=== PATIENT | male | born 1980 | race Caucasian/White ===

== ENCOUNTER 2017-03-22 11:51 | Emergency (ER) | payer OTHER ==
[2017-03-22 12:05] VITALS: BP 130/81
[2017-03-22] MEDS ORDERED: OXYCODONE-ACETAMINOPHEN 5-325 MG TABLET PO ONE (12:37)
--- NOTE | 2017-03-22 12:37 | ER Document Report ---
ED Medical Screen (RME) - General Chief Complaint: Headache Stated Complaint: HEADACHE,KNOT ON HEAD,ABDOMINAL PAIN Mode of Arrival: Ambulatory Information source: Patient Notes: 36-year-old male presents with complaints of headache and left head swelling this morning. Patient denies any fevers or chills I have greeted and performed a rapid initial assessment of this patient. A comprehensive ED assessment and evaluation of the patient, analysis of test results and completion of the medical decision making process will be conducted by additional ED providers. PHYSICAL EXAMINATION: GENERAL: Well-appearing, well-nourished and in no acute distress. HEAD: Left frontal/parietal swelling noted tender to palpation EYES: Pupils equal round extraocular movements intact, conjunctiva are normal. ENT: Nares patent NECK: Normal range of motion LUNGS: No respiratory distress Musculoskeletal: Normal range of motion NEUROLOGICAL: Normal speech, normal gait. PSYCH: Normal mood, normal affect. SKIN: Warm, Dry, normal turgor, no rashes or lesions noted. TRAVEL OUTSIDE OF THE [place] IN LAST 30 DAYS: No - Related Data Allergies/Adverse Reactions: No Known Allergies Allergy (Verified 03/22/17 12:03) Past Medical History Renal/ Medical History: Denies: Hx Peritoneal Dialysis Physical Exam - Vital signs Vitals: Temp Pulse Resp BP Pulse Ox 98.6 F 89 16 130/81 H 95 03/22/17 12:03 03/22/17 12:03 03/22/17 12:03 03/22/17 12:03 03/22/17 12:03 Course - Vital Signs Vital signs: Temp Pulse Resp BP Pulse Ox 98.6 F 89 16 130/81 H 95 03/22/17 12:03 03/22/17 12:03 03/22/17 12:03 03/22/17 12:03 03/22/17 12:03
[2017-03-22] MEDS ORDERED: METOCLOPRAMIDE HCL INJ/PF 10 MG/2 ML SDV IM ONE (15:52)
[2017-03-22] MEDS ORDERED: KETOROLAC TROMETHAMINE 60 MG/2 ML SDV IM ONE (15:52)
[2017-03-22] MEDS ORDERED: DIPHENHYDRAMINE HCL 50 MG/ML VIAL IM ONE (15:52)
--- NOTE | 2017-03-22 16:04 | ER Document Report ---
ED Headache - General Chief Complaint: Headache Stated Complaint: HEADACHE,KNOT ON HEAD,ABDOMINAL PAIN Mode of Arrival: Ambulatory TRAVEL OUTSIDE OF THE [place] IN LAST 30 DAYS: No - HPI Patient complains to provider of: Headache Notes: Patient arrives with complaints of pain at this morning with the left side of his head being somewhat swollen and having pain. States that this area is tender to the touch and is causing him to have a headache in general. He denies any head injury. He denies any fever. Denies any redness. He has nausea and states that he vomited a few times. He denies any abdominal pain. No diarrhea. No rash. He is on no blood thinners. He denies any IV drug use. He denies any blurred or loss vision. He does complain of some mild photophobia. This was not a sudden onset thunderclap type headache. He denies any unilateral numbness tingling or weakness. The pain is worse with touching the left side of his head, nothing seems to make it better. - Related Data Allergies/Adverse Reactions: No Known Allergies Allergy (Verified 03/22/17 12:03) Past Medical History - General Information source: Patient - Social History Smoking Status: Unknown if Ever Smoked Family History: Reviewed & Not Pertinent Patient has suicidal ideation: No Patient has homicidal ideation: No Renal/ Medical History: Denies: Hx Peritoneal Dialysis Review of Systems - Review of Systems -: Yes All other systems reviewed and negative Physical Exam - Vital signs Vitals: Temp Pulse Resp BP Pulse Ox 98.6 F 89 16 130/81 H 95 03/22/17 12:03 03/22/17 12:03 03/22/17 12:03 03/22/17 12:03 03/22/17 12:03 - Notes Notes: GENERAL: alert, cooperative, nontoxic, no distress. HEAD: normocephalic, atraumatic. Patient is noted to have a slight fluctuant area to the left lutheran/frontal scalp. There is no redness. There is no pointing area. No rash noted. Area is tender to palpation. EYES: conjunctiva pink without discharge, no external redness or swelling. Pupils are equal, round, reactive to light. EARS: no external swelling, no external redness NOSE: atraumatic, no external swelling MOUTH/THROAT: mucous membranes moist and pink, posterior pharynx without erythema, swelling, exudate. No trismus or drooling. NECK: soft, supple, full range of motion, no meningismus. CHEST: no distress, lungs clear and equal throughout. No wheezing, rales, rhonchi. CARDIAC: regular rate and rhythm, no murmur, normal capillary refill, normal pulses. No peripheral edema noted. BACK: full range of motion, no CVA tenderness. EXTREMITIES: full range of motion of all extremities. No redness, no swelling. NEURO: alert and oriented x 3, cranial nerves II through XII are grossly intact. Upper and lower extremities are equal throughout. Normal sensation. No focal deficits, full range of motion of all extremities. normal finger to nose. NIH stroke score of 0. PYSCH: appropriate mood, affect. Patient is cooperative. SKIN: pink, warm, dry, no rash. Course - Re-evaluation Re-evalutation: 03/22/17 16:36 Patient is nontoxic with stable vitals. Patient woke up with some mild swelling to the left side of his head and a headache. Sclerae is tender to palpation. There is a small fluctuant area in this area. CT of the brain shows a small fluid collection in this area. I discussed the case with my attending physician, he recommends an attempted I&D to drain fluid. I attempted an I&D, the only thing that was expressed from the area was small amount of blood. Patient tolerated this well. It is tender to the touch, therefore there is a concern for possible infection. The patient will be discharged home on antibiotics as well as some pain medication. He'll be instructed to apply warm compresses to the sore area. Follow-up with his family doctor on Friday for recheck, return to the emergency department for worsening headache, fever, numbness, tingling, weakness or any further concerns. The patient has a normal lactic exam. He is on no blood thinners and And denies any IV drug use. He has no sign or risk of epidural abscess or bleed, no sign of meningitis. This was not a sudden onset thunderclap type headache. The patient is noted to have elevated blood pressure during today's emergency department visit. The patient was informed of this finding. The patient was instructed that this may be related to pre-hypertension and requires further evaluation with a primary care provider. The patient has no hypertensive symptoms at this time. The patient's emergency department workup and current diagnosis were explained to the patient and or family. Follow-up instructions were provided. Medications if prescribed were discussed. Instructions for when to return to the emergency department including specific worrisome symptoms were discussed with the patient and/or family. - Vital Signs Vital signs: Temp Pulse Resp BP Pulse Ox 98.6 F 89 16 130/81 H 95 03/22/17 12:03 03/22/17 12:03 03/22/17 12:03 03/22/17 12:03 03/22/17 12:03 - Diagnostic Test Radiology reviewed: Image reviewed, Reports reviewed Radiology results interpreted by me: 03/22/17 16:39 CT of brain shows no acute intracranial abnormality with a small fluid collection in the left scalp. Procedures - Incision and Drainage left scalp Type: Simple Anesthetic type: 1% Lidocaine mL's of anesthetic: 2 Blade size: 11 I&D procedure: Betadine prep applied Incision Method: Incision made by scalpel Amount/type of drainage: small amount of blood, no purulent drainage. Discharge - Discharge Clinical Impression: Infection Headache Qualifiers: Headache type: unspecified Headache chronicity pattern: acute headache Intractability: not intractable Qualified Code(s): R51 - Headache Disposition: HOME, SELF-CARE Instructions: Headache ([facility]), Abscess ([facility]) Additional Instructions: Take medications as prescribed. Apply warm compresses to the sore area. Follow -up with your doctor on Friday for recheck. Follow-up sooner for increased pain , fever, redness, drainage, worsening headache, blurred or loss vision, numbness , tingling, weakness, or any further concerns. Your blood pressure was elevated during today's visit. Have this rechecked with your doctor. The medication you were prescribed today may cause drowsiness. Do not drive or operate heavy machinery while taking this medication. Prescriptions: Hydrocodone/Acetaminophen [Barnard 5-325 mg Tablet] 1 tab PO Q4 PRN #12 tablet PRN Reason: Naproxen 500 mg PO BID #20 tablet Sulfamethoxazole/Trimethoprim [Bactrim Ds Tablet] 1 each PO BID #20 tablet Forms: Elevated Blood Pressure
== END 2017-03-22 16:58 | disposition home or self-care (01) ==
LOC: ER 11:51
PROC: 0H90XZZ Drainage of Scalp Skin, External Approach (ICD-10-PCS; principal; 2017-03-22)
DX: R51 Headache (principal); R22.0 Localized swelling, mass and lump, head; R10.9 Unspecified abdominal pain
CPT/HCPCS: 99284; 96372; 70450; 10060; J1200; J1885; J2765